=== PATIENT | male | born 1975 | race Caucasian/White ===

== ENCOUNTER 2024-04-25 00:27 | Day surgery (SDC) | payer BC, SELFPAY ==
--- NOTE | 2024-01-11 10:21 | SUR.PREOP ---
Pt called in regards to the doctor not being available on Feb 10 and need to reschedule appointment. Message left on pt's voicemail asking for a return call.
[2024-04-17 10:57] VITALS: BMI 41.1
[2024-04-25 06:55] VITALS: BP 127/82; PULSE 68; RESP 18; TEMP 35.9; O2SAT 100
[2024-04-25] MEDS: LACTATED RINGERS 1,000 ML 150 ML IV CONT (07:03)
--- NOTE | 2024-04-25 07:21 | WPDANESEPPF ---
Anes - Initial Pre Proc Eval Procedure: Operation Date: 04/25/24 08:00 Proposed Procedures p Screening Colonoscopy - Kyle Lynne MD Date/Time: 04/25/24 07:21 Surgeon: Kyle Lynne MD Pre Op Diagnosis: neoplasm screening Patient Data Age: 48 Gender: M Height: 1.98 m Weight: 162 kg Last Vital Signs Temp 35.9 C L 04/25/24 06:55 Pulse 68 04/25/24 06:55 Resp 18 04/25/24 06:55 BP 127/82 04/25/24 06:55 Pulse Ox 100 04/25/24 06:55 O2 Del Method Room Air 04/25/24 06:55 Allergies Allergy/AdvReac Type Severity Reaction Status Date / Time No Known Allergies Allergy Verified 04/25/24 06:53 Home Medications ?Medication ?Instructions ?Recorded ?Confirmed ?Type lisinopril 20 mg tablet 20 mg PO DAILY #90 tabs 08/09/23 04/25/24 Rx alprazolam 0.25 mg tablet (Xanax) 0.25 mg PO TID PRN anxiety #30 tabs 10/01/23 04/17/24 Rx sertraline 100 mg tablet See Rx Instructions .Route 11/12/23 04/25/24 Rx .COMPLEX #90 tabs tirzepatide (weight loss) 10 10 mg (0.5 mL) subcut WEEKLY #6 mL 03/20/24 04/25/24 Rx mg/0.5 mL subcutaneous pen injector (Zepbound) multivitamin with minerals-folic 1 tablet PO DAILY 04/17/24 04/17/24 History acid 0.4 mg tablet Patient hx anesthesia problems: none Family hx anesthesia problems: none Results Review: All pre-operative results and documents have been reviewed as part of the pre-operative evaluation. [facility] Family History Family History Father Family history of thyroid disease Diabetes mellitus Family history of obesity Family history of mental disorder Hypertension Patient's father is in good health Family history of hearing loss Grandparent Family history of thyroid disease Family history of glaucoma Cerebrovascular accident Family history of Alzheimer's disease Mother Family history of mental disorder Depression Hypertension Family history of rheumatoid arthritis Patient's mother is in good health Social History Social History Social History: Caffeine-coffee Smoking status: Never smoker Alcohol intake: current Alcohol use details: three times a week Substance use: never Substance use type: does not use Lack of Transportation: No Lack of Food: Never True Current Housing: I Have Housing Concerned About Future Housing: No Difficulty Paying Gas/Electric Bills: No Difficulty Paying for Meds: No Currently Unemployed: No Education: Bachelor's Degree Difficulty w/ Childcare or Family Care: No Anes - Eval Final PreProcedure Day of Procedure 04/25/24 07:21 Patient weight: morbidly obese Heart: regular rate and rhythm Lungs: clear to auscultation Airway: Mallampati scale class II Neurological: alert and oriented Last oral intake: >/= 8 hours ASA classification: III Emergent: no Anesthetic plan: proceed Anesthesia type and monitoring: general GIVS and standard monitoring Results Review: All pre-operative results and documents have been reviewed as part of the pre-operative evaluation. Informed Consent: The patient's anesthetic plan and its attendant risks and benefits were discussed with the patient/family/POA. Questions were solicited and answers provided to the satisfaction of the patient/family/POA.
--- NOTE | 2024-04-25 07:38 | PM.HPGS ---
History of Present Illness History of Present Illness Consent: Risks, benefits, and alternatives have been discussed and questions answered. Patient agrees to proceed with procedure. Chief complaint: neoplasm screening Narrative: Zhou Live is a 48 year old male here for first screening colonoscopy Review of Systems Review of Systems: All systems reviewed & are unremarkable except as noted in HPI and below PMFSH Family History Family History Father Family history of thyroid disease Diabetes mellitus Family history of obesity Family history of mental disorder Hypertension Patient's father is in good health Family history of hearing loss Grandparent Family history of thyroid disease Family history of glaucoma Cerebrovascular accident Family history of Alzheimer's disease Mother Family history of mental disorder Depression Hypertension Family history of rheumatoid arthritis Patient's mother is in good health Social History Social History Social History: Caffeine-coffee Smoking status: Never smoker Alcohol intake: current Alcohol use details: three times a week Substance use: never Substance use type: does not use Lack of Transportation: No Lack of Food: Never True Current Housing: I Have Housing Concerned About Future Housing: No Difficulty Paying Gas/Electric Bills: No Difficulty Paying for Meds: No Currently Unemployed: No Education: Bachelor's Degree Difficulty w/ Childcare or Family Care: No Meds Home Medications and Allergies Home Medications ?Medication ?Instructions ?Recorded ?Confirmed ?Type lisinopril 20 mg tablet 20 mg PO DAILY #90 tabs 08/09/23 04/25/24 Rx alprazolam 0.25 mg tablet (Xanax) 0.25 mg PO TID PRN anxiety #30 tabs 10/01/23 04/17/24 Rx sertraline 100 mg tablet See Rx Instructions .Route 11/12/23 04/25/24 Rx .COMPLEX #90 tabs tirzepatide (weight loss) 10 10 mg (0.5 mL) subcut WEEKLY #6 mL 03/20/24 04/25/24 Rx mg/0.5 mL subcutaneous pen injector (Zepbound) multivitamin with minerals-folic 1 tablet PO DAILY 04/17/24 04/17/24 History acid 0.4 mg tablet Allergies Allergy/AdvReac Type Severity Reaction Status Date / Time No Known Allergies Allergy Verified 04/25/24 06:53 Vital Signs Vital Signs - 24 hr 04/25/24 06:55 Temperature 96.7 F L Pulse Rate 68 Respiratory Rate 18 Blood Pressure 127/82 Pulse Oximetry 100 Oxygen Delivery Room Air Exam Const: General: comfortable and no acute distress HENMT: Face/Nose/Sinus: Normal nares present Eyes: General: appearance normal, both eyes and all related structures Neck: Neck: no JVD Resp: Auscultation: clear to auscultation bilaterally Cardio: Rate: regular rate Rhythm: regular rhythm GI: Inspection: non-distended GI Palp: Yes Soft to palpation Skin: General skin exam: normal color Neuro: General: gait normal Speech: normal speech Extrem: General: normal to inspection Psych: Mental Status: mental status grossly normal Assessment and Plan Assessment and plan (1) Colon cancer screening: Code(s): Z12.11 - Encounter for screening for malignant neoplasm of colon Status: Acute Assessment and Plan: colonoscopy
[2024-04-25 07:55] VITALS: BP 119/73; PULSE 60; RESP 18; O2SAT 96
[2024-04-25 08:05] VITALS: BP 112/74; PULSE 67; RESP 19; O2SAT 97
[2024-04-25 08:15] VITALS: BP 132/86; PULSE 57; RESP 19; O2SAT 99
== END 2024-04-25 08:21 | disposition home or self-care (01) ==
PROVIDERS: PCP Family Medicine; Visit Provider Internal Medicine Gastroenterology
PROC: 0DJD8ZZ Inspection of Lower Intestinal Tract, Via Natural or Artificial Opening Endoscopic (ICD-10-PCS; CPT 45378; principal; 2024-04-25 08:00)
DX: Z12.11 Encounter for screening for malignant neoplasm of colon (principal); Z79.85 Long-term (current) use of injectable non-insulin antidiabetic drugs; E66.01 Morbid (severe) obesity due to excess calories; Z68.41 Body mass index [BMI] 40.0-44.9, adult
CPT/HCPCS: 45378; J2704; J7120